=== PATIENT | female | born 1990 | race Caucasian/White ===

== ENCOUNTER 2018-09-06 13:27 | Emergency (ER) | payer MEDICAID ==
[~2018-09-06] VITALS: Ht 170.2 cm; Wt 88.6 kg
[2018-09-06 13:39] VITALS: Ht 170.2 cm; Wt 88.6 kg
[2018-09-06] MEDS ORDERED: LISINOPRIL2.5 MG PO (13:40)
[2018-09-06 14:43] LABS: APPEARANCE CLEAR (CLEAR); BILIRUBIN NEGATIVE (NEGATIVE); COLOR YELLOW (YELLOW); GLUCOSE NEGATIVE (NEGATIVE); KETONE NEGATIVE (NEGATIVE); NITRITE NEGATIVE (NEGATIVE); PROTEIN NEGATIVE (NEGATIVE); SPECIFIC GRAVITY 1.015 (1.005-1.020); UROBILINOGEN NORMAL (NORMAL)
[2018-09-06 14:45] LABS: BACTERIA MANY /hpf (NONE SEEN); EPITHELIAL CELLS 0-5 /hpf (0-5); RED CELLS - URINE OCC /hpf (0-5); WHITE CELLS - URINE 0-5 /hpf (0-5)
[2018-09-06] MEDS ORDERED: NEURONTIN 300300 MG PO (15:23)
[2018-09-06] MEDS ORDERED: TORADOL10 MG PO (15:23)
[2018-09-06 15:43] VITALS: BP 140/105
== END 2018-09-06 15:51 | disposition home or self-care (01) ==
LOC: D.ER 13:27
PROVIDERS: Emergency Medicine
DX: M54.16 Radiculopathy, lumbar region (principal)